=== PATIENT | female | born 1990 ===

== ENCOUNTER 2024-10-05 11:15 | Day surgery (SDC) | payer OTHER ==
[2024-09-28 09:22] VITALS: BP 105/69
[2024-09-28 09:43] LABS: BASO % 0.6 % (0.1-1.2); EOS # 0.41 (0.04-0.54); EOS % 4.8 % (0.7-7.0); HEMATOCRIT 39.5 % (34.1-44.9); LYMPH # 1.92 (1.18-3.74); LYMPH % 22.5 % (19.3-53.1); MONO # 0.49 (0.24-0.82); MONO % 5.7 % (4.7-12.5); NEUT # 5.64 (1.56-6.13); PLATELET COUNT 359 K/uL (163-369); RED BLOOD COUNT 4.64 M/uL (3.93-5.22); RED CELL DISTRIBUTION WIDTH 13.7 % (11.6-14.4)
[2024-09-28 09:47] LABS: PH,URINE 5.5 (5.0-8.0); URINE APPEARANCE Clear; URINE BILIRRUBIN Negative (NEGATIVE); URINE BLOOD Negative; URINE COLOR Yellow; URINE GLUCOSE Negative (NEGATIVE); URINE KETONE Trace (NEGATIVE); URINE LEUKOCYTE Negative; URINE NITRATE Negative; URINE PROTEIN Trace (NEGATIVE); URINE UROBILINOGEN 0.2 E.U./dl
[2024-09-28 09:51] LABS: URINE BACTERIA 526.2 uL (0.0-1933); URINE EPITHELIAL CELLS 22.7 uL (0.0-38.8); URINE RBC 9.1 uL (0.0-20.8); URINE WBC 13.9 uL (0.0-23.2)
[2024-09-28 09:52] LABS: URINE CAST 0.14 uL (0.0-1.40)
[2024-09-28 10:00] LABS: INR 1.03; PARTIAL THROMBOPLASTIN TIME 26.7 SECONDS (22.0-34.0); PROTHROMBIN TIME 11.2 SECONDS (9.0-11.5)
[2024-09-28 10:16] LABS: RH POSITIVE
[2024-09-28 10:21] LABS: ALBUMIN 4.3 gm/dL (3.4-5.0); BILIRUBIN TOTAL 0.53 mg/dL (0.3-1.2); CALCIUM 9.4 mg/dL (8.5-10.1); CREATININE SERUM 0.58 mg/dL (0.55-1.02); GFR 119.72; GLOBULINA 3.4 G/DL (2.4-3.5); POTASSIUM 4.09 mEq/L (3.5-5.1); TOTAL PROTEIN 7.7 gm/dL (6.4-8.2)
[~2024-10-05] VITALS: Ht 157.5 cm; Wt 66.7 kg
[2024-10-05] MEDS ORDERED: POVIDONE-IODINE 118 ML BOTT TOP ONE (12:35)
[2024-10-05] MEDS ORDERED: SUGAMMADEX SODIUM 200 MG/2 ML VIAL IV ONE (13:39)
[2024-10-05] MEDS ORDERED: RINGERS SOLUTION,LACTATED 1,000 ML IV SCH (17:00)
[2024-10-05] MEDS ORDERED: KETOROLAC TROMETHAMINE 30 MG VIAL IV ONE (17:00)
== END 2024-10-05 23:03 | disposition home or self-care (01) ==
LOC: CIR.AMB 11:15
PROVIDERS: ATTEND Student in an Organized Health Care Education/Training Program
DX: N84.1 Polyp of cervix uteri (principal); N93.8 Other specified abnormal uterine and vaginal bleeding